=== PATIENT | female | born 1975 | race Two or more races ===

== ENCOUNTER 2016-06-05 15:39 | Emergency (ER) | payer BC, OTHER ==
[~2016-06-05] VITALS: Ht 147.3 cm; Wt 57.2 kg
[2016-06-05] MEDS ORDERED: SODIUM CHLORIDE 0.9% 1,000 ML IV ONE (15:49)
[2016-06-05] MEDS ORDERED: METOCLOPRAMIDE 5 MG/ML, 2ML IVPush ONE (16:00)
[2016-06-05] MEDS ORDERED: SODIUM CHLORIDE 0.9% 1,000ML IVBOLUS ONE (16:00)
[2016-06-05] MEDS ORDERED: METOCLOPRAMIDE 5 MG/ML, 2ML ONE (16:05)
[2016-06-05 16:16] LABS: HEMOGLOBIN 13.9 g/dL (11.7-16.4)
[2016-06-05 16:22] LABS: BLOOD UREA NITROGEN 11 mg/dL (7-18)
[2016-06-05] MEDS ORDERED: DIPHENHYDRAMINE 50 MG/ML, 1ML ONE (16:24)
[2016-06-05] MEDS ORDERED: DIPHENHYDRAMINE 50 MG/ML, 1ML IVPush ONE (16:30)
[2016-06-05] MEDS ORDERED: MAALOX/HYOSCYAMINE/LIDOCAINE 45 ML BOTTLE ONE (16:38)
[2016-06-05 16:39] LABS: ASPARTATE AMINO TRANSFERASE 30 U/L (15-37)
[2016-06-05] MEDS ORDERED: MAALOX/HYOSCYAMINE/LIDOCAINE 45 ML BOTTLE PO ONE (17:00)
[2016-06-05 18:16] VITALS: BP 110/68
== END 2016-06-05 18:35 | disposition home or self-care (01) ==
LOC: ED 18:15
DX: O21.0 Mild hyperemesis gravidarum (principal); Z3A.21 21 weeks gestation of pregnancy; O26.892 Other specified pregnancy related conditions, second trimester; E86.0 Dehydration
CPT/HCPCS: 36415; 80053; 83690; 85025; 93005; 96361; 96374; 96375; 99285; J1200; J2765; J7030

== ENCOUNTER 2017-01-28 15:38 | Emergency (ER) | payer BC ==
[~2017-01-28] VITALS: Ht 147.3 cm; Wt 57.9 kg
[2017-01-28] MEDS ORDERED: SODIUM CHLORIDE FLUSH 10ML SYR IVF ONE (16:00)
[2017-01-28] MEDS ORDERED: SODIUM CHLORIDE 0.9% 1,000ML IVBOLUS ONE (16:00)
[2017-01-28 16:50] LABS: HEMATOCRIT 40.5 % (34.6-47.8); HEMOGLOBIN 13.5 g/dL (11.7-16.4); WHITE BLOOD COUNT 10.9 x10^3/uL (3.4-10)
[2017-01-28 16:59] LABS: BLOOD UREA NITROGEN 17 mg/dL (7-18)
[2017-01-28 17:12] LABS: PATH.CAST-FLAG NOT PRESENT; SPERM-FLAG NOT PRESENT; SRC-FLAG NOT PRESENT; XTAL-FLAG NOT PRESENT; YLC-FLAG NOT PRESENT
[2017-01-28 17:22] LABS: ASPARTATE AMINO TRANSFERASE 22 U/L (15-37)
[2017-01-28 17:36] VITALS: BP 115/74
[2017-01-28] MEDS ORDERED: POTASSIUM CHLORIDE 20 MEQ TAB.ER.PRT PO ONE (18:00)
[2017-01-28] MEDS ORDERED: POTASSIUM CHLORIDE 20 MEQ TAB.ER.PRT ONE (18:04)
== END 2017-01-28 18:20 | disposition home or self-care (01) ==
LOC: ED 17:05
DX: O03.4 Incomplete spontaneous abortion without complication (principal); E87.6 Hypokalemia
CPT/HCPCS: 36415; 76801; 80053; 81001; 84702; 85025; 86901; 96360; 99285; J7030

== ENCOUNTER 2017-02-15 09:22 | Emergency (ER) | payer BC ==
[~2017-02-15] VITALS: Ht 149.9 cm; Wt 58.4 kg
[2017-02-15] MEDS ORDERED: SODIUM CHLORIDE 0.9% 1,000 ML IV ONE (11:06)
[2017-02-15] MEDS ORDERED: SODIUM CHLORIDE 0.9% 1,000ML IVBOLUS ONE (11:30)
[2017-02-15] MEDS ORDERED: SODIUM CHLORIDE FLUSH 10ML SYR IVF ONE (11:30)
[2017-02-15] MEDS ORDERED: ONDANSETRON 2MG/ML, 2ML IVPush ONE (11:30)
[2017-02-15] MEDS ORDERED: MORPHINE SULFATE 4 MG/ML, 1ML IVPush PRN (11:30)
[2017-02-15 12:13] LABS: HEMATOCRIT 36.6 % (34.6-47.8); WHITE BLOOD COUNT 12.3 x10^3/uL (3.4-10)
[2017-02-15 12:24] LABS: ASPARTATE AMINO TRANSFERASE 14 U/L (15-37); BLOOD UREA NITROGEN 11 mg/dL (7-18)
[2017-02-15 12:59] LABS: PATH.CAST-FLAG NOT PRESENT; SPERM-FLAG NOT PRESENT; SRC-FLAG NOT PRESENT; XTAL-FLAG NOT PRESENT; YLC-FLAG NOT PRESENT
[2017-02-15] MEDS ORDERED: AMPICILLIN/SULBACTAM 3 GM in SODIUM CHLORIDE 0.9% 100 ML IV ONE (13:00)
[2017-02-15] MEDS ORDERED: CEFTRIAXONE PMX 1GM/50ML 50 ML IV ONE (13:00)
[2017-02-15 15:11] VITALS: BP 99/63
== END 2017-02-15 16:06 | disposition home or self-care (01) ==
LOC: ED 13:12
DX: R10.2 Pelvic and perineal pain (principal); N89.8 Other specified noninflammatory disorders of vagina
CPT/HCPCS: 36415; 76830; 80053; 81001; 84702; 85025; 87040; 87077; 87086; 87186; 96361; 96365; 96366; 96375; 99285; J0696; J2405; J7030

== ENCOUNTER 2018-07-28 18:34 | Emergency (ER) | payer BC ==
[~2018-07-28] VITALS: Ht 152.4 cm; Wt 58.7 kg
[2018-07-28 19:36] LABS: BASOPHILS # (AUTO) 0.05 x10^3/uL (0-0.1); BASOPHILS % (AUTO) 0 % (0-1); EOSINOPHILS # (AUTO) 0.29 x10^3/uL (0-0.4); EOSINOPHILS % (AUTO) 2 % (1-7); LYMPHOCYTES # (AUTO) 2.31 x10^3/uL (1-3.4); LYMPHOCYTES % (AUTO) 17 % (22-44); MD NO; MEAN CORPUSCULAR HEMOGLOBIN 29.6 pg (27.0-34.8); MEAN CORPUSCULAR HGB CONC 32.8 g/dL (32.4-35.8); MEAN CORPUSCULAR VOLUME 90.4 fL (80-100); MEAN PLATELET VOLUME 9.7 fL (7.4-10.4); MONOCYTES # (AUTO) 0.89 x10^3/uL (0.2-0.8); MONOCYTES % (AUTO) 7 % (2-9); NEUTROPHILS # (AUTO) 9.71 x10^3/uL (1.8-6.8); NEUTROPHILS % (AUTO) 73 % (42-75); PLATELET COUNT 201 x10^3/uL (130-400); RED BLOOD COUNT 4.75 x10^6/uL (3.82-5.3); RED CELL DISTRIBUTION WIDTH 14.1 % (9.6-15.2)
--- NOTE | 2018-07-28 19:39 | NUR ---
ASSUMED CARE OF PATIENT. PATIENT REPORTS SHE HAS HAD A COUGH AND SORE THROAT WITH CHEST PAIN. PT ALSO REPORT SHE MIGHT BE . FAMILY AT BEDSIDE. VS STABLE. NO ACUTE DISTRESS NOTED. CALL LIGHT IN PLACE. WILL CONTINUE TO MONITOR.
[2018-07-28 19:47] LABS: ALBUMIN 3.6 g/dL (3.4-5.0); ANION GAP 6 mmol/L (5-15); CALCIUM 8.6 mg/dL (8.5-10.1); CHLORIDE 108 mmol/L (98-107)
[2018-07-28 20:06] LABS: ALANINE AMINOTRANSFERASE 20 U/L (12-78); ALKALINE PHOSPHATASE 55 U/L (45-117); BILIRUBIN,TOTAL 0.2 mg/dL (0.2-1.0); CREATININE 0.59 mg/dL (0.55-1.02); TOTAL PROTEIN 7.3 g/dL (6.4-8.2); TROPONIN I < 0.015 ng/mL (0.000-0.045)
[2018-07-28] MEDS ORDERED: ACETAMINOPHEN 325 MG TABLET PO ONE (20:30)
[2018-07-28] MEDS ORDERED: ACETAMINOPHEN 325 MG TABLET ONE (20:33)
--- NOTE | 2018-07-28 20:38 | NUR ---
PT VISITING WITH FAMILY AT BEDSIDE. PT DOES NOT HAVE URINATE AT THIS TIME. WILL CONTINUE TO MONITOR. VS STABLE.
--- NOTE | 2018-07-28 21:24 | NUR ---
UA SENT. PT RESTING IN ROOM. VS STABLE. WILL CONTINUE TO MONITOR.
[2018-07-28 21:36] LABS: MICROSCOPIC INDICATED
[2018-07-28 21:43] LABS: CULTURE INDICATED? YES
[2018-07-28 22:12] VITALS: BP 96/52
== END 2018-07-28 22:12 | disposition home or self-care (01) ==
LOC: ED 22:05
DX: O23.11 Infections of bladder in pregnancy, first trimester (principal); R31.9 Hematuria, unspecified; Z3A.01 Less than 8 weeks gestation of pregnancy; J02.8 Acute pharyngitis due to other specified organisms
CPT/HCPCS: 36415; 71045; 80053; 81001; 83690; 84484; 84702; 84703; 85025; 87081; 87086; 87880; 93005; 99284

== ENCOUNTER 2019-11-25 13:46 | Emergency (ER) | payer BC ==
[~2019-11-25] VITALS: Ht 147.3 cm; Wt 56.8 kg
[2019-11-25] MEDS ORDERED: PHENAZOPYRIDINE 200 MG TABLET ONE (14:23)
[2019-11-25] MEDS ORDERED: PHENAZOPYRIDINE 200 MG TABLET PO ONE (14:30)
--- NOTE | 2019-11-25 15:00 | NUR ---
PT SITTING ON GURNEY TALKING ON CELL PHONE. AT BEDSIDE. PT REQUESTING "SOMETHING FOR THE PAIN, IT IS 11/18". MEDICATED PER MD ORDER. COMFORT MEASURES PROVIDED, CALL LIGHT WITHIN REACH. NO ADDITIONAL NEEDS AT THIS TIME.
[2019-11-25] MEDS ORDERED: HYDROcodone/APAP 5/325 TABLET ONE (15:11)
[2019-11-25] MEDS ORDERED: ONDANSETRON ODT 4 MG ONE (15:11)
[2019-11-25 15:12] LABS: MICROSCOPIC INDICATED
[2019-11-25] MEDS ORDERED: HYDROcodone/APAP 5/325 TABLET PO ONE (15:30)
[2019-11-25] MEDS ORDERED: ONDANSETRON ODT 4 MG PO ONE (15:30)
[2019-11-25 15:40] VITALS: BP 101/63
--- NOTE | 2019-11-25 15:42 | NUR ---
Patient AND SPOUSE given discharge instructions and they have confirmed that they understand the instructions. Patient ambulatory with steady gait.
== END 2019-11-25 15:43 | disposition home or self-care (01) ==
LOC: ED 14:20
DX: N30.01 Acute cystitis with hematuria (principal); R30.0 Dysuria; R10.31 Right lower quadrant pain; R10.32 Left lower quadrant pain; Z90.89 Acquired absence of other organs
CPT/HCPCS: 81001; 87077; 87086; 87186; 99284; Q0162

== ENCOUNTER 2019-11-28 16:58 | Emergency (ER) | payer BC ==
[~2019-11-28] VITALS: Ht 147.3 cm; Wt 55.5 kg
--- NOTE | 2019-11-28 17:13 | NUR ---
BREAK RN: PT IS BEING TREATED FOR A UTI. TODAY PT REPORTS N/V AND PAINFUL URINATION. PT WAS ABLE TO PROVIDE A UA. TAMMY ABERNATHY IN ROOM. FAMILY AT BEDSIDE. CALL LIGHT IN PLACE. WILL CONTINUE TO MONITOR.
[2019-11-28] MEDS ORDERED: ONDANSETRON ODT 4 MG PO ONE (17:30)
[2019-11-28 17:31] LABS: MICROSCOPIC INDICATED
[2019-11-28] MEDS ORDERED: ONDANSETRON ODT 4 MG ONE (17:34)
[2019-11-28] MEDS ORDERED: ONDANSETRON 2MG/ML, 2ML IVPush ONE (18:00)
[2019-11-28] MEDS ORDERED: SODIUM CHLORIDE 0.9% 1,000ML IVBOLUS ONE (18:00)
[2019-11-28] MEDS ORDERED: SODIUM CHLORIDE FLUSH 10ML SYR IVF ONE (18:00)
--- NOTE | 2019-11-28 18:00 | NUR ---
Report given to SOBEIDA Anand
[2019-11-28 18:04] LABS: ALANINE AMINOTRANSFERASE 18 U/L (12-78); ALBUMIN 3.6 g/dL (3.4-5.0); ANION GAP 8 mmol/L (5-15); CALCIUM 8.9 mg/dL (8.5-10.1); CHLORIDE 108 mmol/L (98-107); CREATININE 1.44 mg/dL (0.55-1.02)
[2019-11-28 18:07] LABS: BASOPHILS # (AUTO) 0.08 x10^3/uL (0-0.1); BASOPHILS % (AUTO) 1 % (0-1); EOSINOPHILS # (AUTO) 0.14 x10^3/uL (0-0.4); EOSINOPHILS % (AUTO) 1 % (1-7); LYMPHOCYTES # (AUTO) 2.34 x10^3/uL (1-3.4); LYMPHOCYTES % (AUTO) 23 % (22-44); MD NO; MEAN CORPUSCULAR HEMOGLOBIN 28.9 pg (27.0-34.8); MEAN CORPUSCULAR HGB CONC 32.4 g/dL (32.4-35.8); MEAN CORPUSCULAR VOLUME 89.3 fL (80-100); MEAN PLATELET VOLUME 9.9 fL (7.4-10.4); MONOCYTES # (AUTO) 0.84 x10^3/uL (0.2-0.8); MONOCYTES % (AUTO) 8 % (2-9); NEUTROPHILS # (AUTO) 6.74 x10^3/uL (1.8-6.8); NEUTROPHILS % (AUTO) 66 % (42-75); PLATELET COUNT 188 x10^3/uL (130-400); RED BLOOD COUNT 4.68 x10^6/uL (3.82-5.3); RED CELL DISTRIBUTION WIDTH 14.3 % (9.6-15.2)
[2019-11-28 18:08] LABS: ALKALINE PHOSPHATASE 48 U/L (45-117); BILIRUBIN,TOTAL 0.4 mg/dL (0.2-1.0); TOTAL PROTEIN 7.7 g/dL (6.4-8.2)
[2019-11-28] MEDS ORDERED: ONDANSETRON 2MG/ML, 2ML ONE (18:08)
--- NOTE | 2019-11-28 18:38 | NUR ---
PT TO CT VIA [facility].
[2019-11-28] MEDS ORDERED: OMNIPAQUE 350 MG/ML, 100ML BOTTLE ONE (18:47)
--- NOTE | 2019-11-28 19:55 | NUR ---
CHART UP FOR MD RECHECK. PT AWARE.
[2019-11-28 19:58] VITALS: BP 113/64
--- NOTE | 2019-11-28 19:58 | NUR ---
3 P'S ADDRESSED. PT REPORTS NAUSEA IS BETTER. WAITING FOR MD RECHECK.
== END 2019-11-28 20:30 | disposition home or self-care (01) ==
LOC: ED 18:07
DX: R10.30 Lower abdominal pain, unspecified (principal); R35.0 Frequency of micturition; R11.2 Nausea with vomiting, unspecified; Z76.0 Encounter for issue of repeat prescription; Z90.89 Acquired absence of other organs
CPT/HCPCS: 36415; 74177; 80053; 81001; 84703; 85025; 87086; 96361; 96374; 99285; J2405; J7030; Q0162; Q9967